=== PATIENT | male | born 1985 | race Asian ===

== ENCOUNTER 2018-03-14 12:08 | Emergency (ER) | payer MEDICAID ==
[~2018-03-14] VITALS: Ht 180.3 cm; Wt 86.2 kg
[2018-03-14 12:18] VITALS: BP 124/80
[2018-03-14] MEDS ORDERED: Bacitracin Oint UD TOPIC ONE (12:30)
[2018-03-14] MEDS ORDERED: Lidocaine 1% MPF 10mg/ml 5ml INJ ONE (12:30)
[2018-03-14] MEDS ORDERED: Ketorolac 30mg Inj IM ONE (12:30)
--- NOTE | 2018-03-14 12:33 | Emergency Room Report ---
History of Present Illness General Chief Complaint: Skin Rash/Abscess Source: Patient Present Illness HPI 32-year-old male patient presents ER complaining of "bump" on his back for the past several days. States that bump began as a small "pimple" that appeared on Friday and began growing in size 3 days ago. Reports drainage from site. Denies fever, chest pain, shortness of breath, vomiting, abdominal pain. Denies history of diabetes. reports not taking any medication for symptoms. states has been covering with gauze. Allergies: Coded Allergies: No Known Allergies (Unverified , 03/14/18) Patient History Past Medical History: see triage record Reviewed Nursing Documentation: PMH: Agreed; PSxH: Agreed Nursing Documentation-PMH Past Medical History: No Stated History Review of Systems All Other Systems: negative except mentioned in HPI Physical Exam Vital Signs Date Time Temp Pulse Resp B/P (MAP) Pulse Ox O2 Delivery O2 Flow Rate FiO2 03/14/18 12:14 98.4 71 18 124/80 97 Room Air 98.4 Sp02 EP Interpretation: reviewed, normal General Appearance: well appearing, no apparent distress, alert, GCS 15, non- toxic Head: normocephalic, atraumatic Eyes: bilateral eye normal inspection, bilateral eye PERRL ENT: hearing grossly normal, normal pharynx, no angioedema, normal voice, uvula midline, moist mucus membranes Neck: full range of motion Respiratory: lungs clear, normal breath sounds, no rhonchi, no respiratory distress, no accessory muscle use, no wheezing, speaking full sentences Cardiovascular #1: regular rate, rhythm, no edema Musculoskeletal: back normal, digits/nails normal, gait/station normal, normal range of motion, non-tender Neurologic: alert, oriented x3, responsive, motor strength/tone normal, sensory intact Psychiatric: mood/affect normal Skin: other - 6cm x3 cm abscess on left mid back, mild drainage noted, no active draining, erythematous and fluctuant, tender to palpation; right posterior shoulder: 1cm lipoma, no surrounding erythema or edema, no TTP Procedures Incision and Drainage Incision and Drainage : Consent: Verbal Site: left mid back Blade Size: 11 I & D Procedure: betadine prep, sterile drapes applied, sterile dressing applied Wound Location: back Wound's Depth, Shape: superficial Wound Explored: contaminated Irrigated w/ Saline (ccs): 10 Anesthesia: 1% Lidocaine Volume Anesthetic (ccs): 5 Splint Applied?: No Sling Applied?: No Patient Tolerated: Well Complications: None Medical Decision Making PA Attestation Dr. Parsons is my supervising Physician whom patient management has been discussed with. Diagnostic Impression: Primary Impression: Abscess ER Course Pt. presents to the ED c/o abscess on back for a few days. Ddx considered but are not limited to rash, cellulitis, abscess, sebaceous cyst , carbuncle, folliculitis. Does not require imaging at this time. Vital signs: are WNL, pt. is afebrile ED INTERVENTIONS: Physical exam shows obvious abscess on left mid back. Will perform IND. Provided patient with Toradol for pain. Will use lidocaine for cisneros and local block at site of incision. I&D of abscess performed. Pus drained from abscess. Sterile dressing applied to wound following procedure. Bacitracin applied to wound. Provided first dose of abx in ER. Plato given for pain prior to discharge. Followup in 1 week with PCP or ER for wound check following completion of abx. ER precautions given. Lipoma does not need drainage, followup with dermatology. DISCHARGE: -Rx provided for Keflex -Rx provided for Bactrim -Rx provided for Tylenol -Rx provided for Bacitracin At this time pt. is stable for d/c to home. Patient is resting comfortably, in no acute distress, nontoxic appearing. Will provide printed patient care instructions and any necessary prescriptions. Care plan and follow up instructions have been discussed with the patient prior to discharge. Patient instructed to follow-up with primary care provider in 2 - 3 days for wound recheck. Patient questions asked and answered. Patient reports understanding and agreement to treatment plan. ER precautions given. Patient instructed to return to ER immediately for any new or worsening of symptoms including but not limited to fever, worsening of pain symptoms, worsening of erythema, red streaking. - Please note that this Emergency Department Report was dictated using [employer] evalu[employer]/case manager technology software, occasionally this can lead to erroneous entry secondary to interpretation by the dictation equipment. Last Vital Signs Date Time Temp Pulse Resp B/P (MAP) Pulse Ox O2 Delivery O2 Flow Rate FiO2 03/14/18 12:18 98.4 70 18 124/80 97 Room Air 98.4 Disposition: HOME, SELF-CARE Condition: Stable Scripts Trimethoprim/Sulfamethoxazole 160/800* (BACTRIM DS TABLET*) 1 Each Tablet 1 TAB ORAL TWICE A DAY, #13 TAB Prov: Luis Angel Valderrama 03/14/18 Acetaminophen* (TYLENOL EXTRA STRENGTH*) 500 Mg Tablet 500 MG ORAL Q8H PRN for Prn Headache/Temp > 101, #30 TAB 0 Refills Prov: Luis Angel Valderrama 03/14/18 Cephalexin* (KEFLEX*) 500 Mg Capsule 500 MG ORAL EVERY 12 HOURS, #13 CAP 0 Refills Prov: Luis Angel Valderrama 03/14/18 Bacitracin/Polymyxin B Sulfate (BACITRACIN-POLYMYXIN OINTMENT) 28.35 Gm Oint...g. 1 APPLIC TP BID, #28 GM Prov: Luis Angel Valderrama 03/14/18 Patient Instructions: Abscess Additional Instructions: Patient instructed to follow-up with primary care provider in 3 - 5 days for wound check. Take medications as directed. Keep wound clean and dry. Patient questions asked and answered. ER precautions given, patient instructed to return to ER immediately for any new or worsening of symptoms. Luis Angel Valderrama Mar 14, 2018 12:33
[2018-03-14] MEDS ORDERED: Bactrim-DS 1 tab ORAL ONE (13:00)
[2018-03-14] MEDS ORDERED: Cephalexin 500mg cap ORAL ONE (13:00)
[2018-03-14] MEDS ORDERED: Norco 5mg/325mg tab ORAL ONE (13:00)
[2018-03-14] MEDS ORDERED: TYLENOL EXTRA500 MG ORAL (13:01)
[2018-03-14] MEDS ORDERED: BACTRIM DS TAB1 EAC1 ORAL (13:01)
[2018-03-14] MEDS ORDERED: BACITRACIN-P28.35 GM TP (13:01)
[2018-03-14] MEDS ORDERED: CEPHALEXIN500 MG ORAL (13:01)
[2018-03-14 13:14] VITALS: BP 124/80
== END 2018-03-14 13:14 | disposition home or self-care (01) ==
LOC: EMR 12:30
DX: L02.212 Cutaneous abscess of back [any part, except buttock and flank] (principal)
CPT/HCPCS: 10060; 96372; 99283; J1885